=== PATIENT | female | born 1940 | race Caucasian/White ===

== ENCOUNTER 2020-06-18 09:14 | Emergency (ER) | payer MEDICARE, BC ==
[2020-06-18 09:22] VITALS: BP 161/64; PULSE 76
--- NOTE | 2020-06-18 09:36 | EDM.PDOC ---
ED HPI GENERAL MEDICAL PROBLEM - General Chief Complaint: General Stated Complaint: Nose bleed Time Seen by Provider: 06/18/20 09:16 Source of Information: Reports: Patient History Limitations: Reports: No Limitations - History of Present Illness INITIAL COMMENTS - FREE TEXT/NARRATIVE: This patient is an 80 year old male that presents to the ER. Patient reports that started last night at about 1ppm, she had a scab to the inside of her right nare. She reports blowing her nose, and picking at it, she reports the scab came off and her nose began to bleed. She reports she keeps putting tissues at the nose and it keeps bleeding. The patient denies passing out, nausea, vomiting, blood to back of throat. Onset Date: 06/17/20 Onset Time: 23:00 Location: Reports: Other (nose right nare) Severity: Mild Improves with: Reports: None Worsens with: Reports: None Associated Symptoms: Reports: No Other Symptoms. Denies: Confusion, Chest Pain, Cough, cough w sputum, Headaches, Malaise, Nausea/Vomiting, Shortness of Breath, Syncope, Weakness - Related Data Allergies Allergy/AdvReac Type Severity Reaction Status Date / Time ampicillin Allergy Cannot Verified 06/18/20 09:15 Remember Penicillins Allergy Cannot Verified 06/18/20 09:15 Remember Sulfa (Sulfonamide Allergy Cannot Verified 06/18/20 09:15 Antibiotics) Remember Home Meds: Home Meds Aspirin [Halfprin] 81 mg PO DAILY 12/06/14 [History] Hydroxyurea [Hydrea] 500 mg PO ASDIRECTED 12/06/14 [History] L.acidoph,Paracasei, B.lactis [Probiotic] 1 cap PO DAILY 06/18/20 [History] [place]-3/DHA/Epa/Fish Oil [[place] 3 500 Softgel] 1 cap PO DAILY 06/18/20 [History] Past Medical History HEENT History: Reports: Cataract, Other (See Below) Other HEENT History: Eye lid lift Cardiovascular History: Reports: High Cholesterol Hematologic History: Reports: Other (See Below) Other Hematologic History: Mylofibrosis Other Oncologic History: Myleoprolifrative CA - Past Surgical History HEENT Surgical History: Reports: Cataract Surgery Cardiovascular Surgical History: Reports: None Social & Family History - Family History Family Medical History: No Pertinent Family History - Tobacco Use Tobacco Use Status *Q: Never Tobacco User Second Hand Smoke Exposure: No - Caffeine Use Caffeine Use: Reports: None - Recreational Drug Use Recreational Drug Use: No ED ROS GENERAL - Review of Systems Review Of Systems: See Below Constitutional: Reports: No Symptoms HEENT: Reports: Nosebleed Respiratory: Reports: No Symptoms Cardiovascular: Reports: No Symptoms Endocrine: Reports: No Symptoms GI/Abdominal: Reports: No Symptoms : Reports: No Symptoms Musculoskeletal: Reports: No Symptoms Skin: Reports: No Symptoms Neurological: Reports: No Symptoms Psychiatric: Reports: No Symptoms Hematologic/Lymphatic: Reports: No Symptoms Immunologic: Reports: No Symptoms ED EXAM, GENERAL - Physical Exam Exam: See Below Exam Limited By: No Limitations General Appearance: Alert, WD/WN, No Apparent Distress Eye Exam: Bilateral Eye: Normal Inspection, PERRL Ears: Normal External Exam, Normal Canal, Hearing Grossly Normal, Normal TMs Ear Exam: Bilateral Ear: Auricle Normal, Canal Normal, TM normal Nose: Other (right nare anterior medial abrasion with active bleeding. ) Throat/Mouth: Normal Inspection, Normal Lips, Normal Teeth, Normal Gums, Normal Oropharynx, Normal Voice, No Airway Compromise, Other (no blood) Head: Atraumatic, Normocephalic Neck: Normal Inspection, Supple, Non-Tender, Full Range of Motion Respiratory/Chest: No Respiratory Distress, Lungs Clear, Normal Breath Sounds, No Accessory Muscle Use Cardiovascular: Normal Peripheral Pulses, Regular Rate, Rhythm Neurological: Alert, Oriented Psychiatric: Normal Affect, Normal Mood Skin Exam: Warm, Dry, Normal Color, No Rash, Wound/Incision (small abrasion right anterior medial nare) #1 Interpretation EKG Date: 06/18/20 Time: 10:33 Rhythm: NSR Rate (Beats/Min): 68 P-Wave: Present QRS: Normal ST-T: Normal QT: Normal Comparison: NA - No Prior EKG Course - Vital Signs Last Recorded V/S: Last Vital Signs Temp 97.5 F 06/18/20 09:20 Pulse 76 06/18/20 09:20 Resp 18 06/18/20 09:20 BP 161/64 H 06/18/20 09:20 Pulse Ox 96 06/18/20 09:20 - Orders/Labs/Meds Orders: Active Orders 24 hr Category Date Time Status Blood Glucose Check, Bedside [RC] ONETIME Care 06/18/20 10:02 Active EKG Documentation Completion [RC] STAT Care 06/18/20 10:02 Active Chest 2V [CR] Stat Exams 06/18/20 10:03 Taken TROPONIN I [CHEM] Stat Lab 06/18/20 14:00 Ordered Sodium Chloride 0.9% [Normal Saline] 1,000 ml Med 06/18/20 10:00 Active IV ASDIRECTED Medication Orders Sodium Chloride (Normal Saline) 1,000 mls @ 999 mls/hr IV ASDIRECTED YOHANA Stop: 06/22/20 09:51 Last Admin: 06/18/20 10:12 Dose: 999 mls/hr Documented by: MIRIAM Labs: Laboratory Tests 06/18/20 06/18/20 06/18/20 Range/Units 09:16 10:02 10:10 WBC 33.6 H* (5.0-10.0) 10^3/uL RBC 3.05 L (4.00-5.50) 10^6/uL Hgb 10.4 L (12.0-16.0) g/dL Hct 33.9 L (37.0-47.0) % MCV 111.1 H (82.0-94.0) fL MCH 34.1 H (27.0-32.0) pg MCHC 30.7 L (33.0-38.0) g/dL RDW Coeff of Monica 19.0 H (11.0-15.0) % Plt Count 362 (150-400) 10^3/uL Add Manual Diff Yes Neutrophils % (Manual) 63 (35-85) % Band Neutrophils % 3 (0-5) % Lymphocytes % (Manual) 19 L (21-55) % Monocytes % (Manual) 7 (2-12) % Eosinophils % (Manual) 2 (0-5) % Metamyelocytes % 6 % Absolute Neutrophils 22.18 H (1.80-7.00) 10^3/uL Lymphocytes # (Manual) 6.38 H (1.00-4.80) 10^3/uL Monocytes # (Manual) 2.35 H (0.00-0.80) 10^3/uL Eosinophils # (Manual) 0.67 H (0.00-0.45) 10^3/uL Sodium 137 (136-145) mEq/L Potassium 4.5 (3.5-5.0) mEq/L Chloride 102 (98-106) mEq/L Carbon Dioxide 26 (21-32) mmol/L BUN 24 H (7-18) mg/dL Creatinine 1.1 H (0.6-1.0) mg/dL Est Cr Clr Drug Dosing 31.72 mL/min Estimated GFR (MDRD) 48 L (>=60) mL/min Glucose 93 (75-99) mg/dL POC Glucose 87 (75-105) mg/dl Calcium 8.7 (8.4-10.1) mg/dL Total Bilirubin 1.1 H (0.0-1.0) mg/dL AST 43 H (15-37) U/L ALT 29 (12-78) U/L Alkaline Phosphatase 201 H (46-116) U/L Lactate Dehydrogenase 2109 H (100-190) U/L Creatine Kinase 61 (21-215) U/L Troponin I < 0.017 (0.00-0.06) ng/mL Total Protein 7.2 (6.4-8.2) g/dL Albumin 3.6 (3.4-5.0) g/dL Meds: Medications Generic Name Dose Route Start Last Admin Trade Name Freq PRN Reason Stop Dose Admin Sodium Chloride 1,000 mls @ 999 mls/hr 06/18/20 10:00 06/18/20 10:12 Normal Saline IV 06/22/20 09:51 999 mls/hr ASDIRECTED YOHANA Administration Discontinued Medications Generic Name Dose Route Start Last Admin Trade Name Freq PRN Reason Stop Dose Admin Ondansetron HCl 4 mg 06/18/20 09:43 06/18/20 10:12 Zofran Odt PO 06/18/20 09:44 4 mg ONETIME ONE Administration Oxymetazoline HCl 1 ml 06/18/20 09:37 06/18/20 09:40 Nasal Decongestant [place] MANUEL 06/18/20 09:38 1 spray ONETIME ONE Administration - Radiology Interpretation Free Text/Narrative:: CXR: no focal infiltrates, no cardiac enlargement, no pulmonary edema. - Re-Assessments/Exams Free Text/Narrative Re-Assessment/Exam: 06/18/20 09:30 Oxymetazoline sprayed into right nare. Patient asked to sit forward, nasal clamp applied to the nose, cold wash rag with ice applied as well to stop bleeding. 06/18/20 09:35 RN reports the patient is feeling nauseated. Zofran ODT ordered. 06/18/20 09:39 RN reports patient is now acting strange and not answering her questions right away. I went to see patient again, she is pallor, reports she does not feel very well. Reports she feels like she is going to pass out, HR in 40s. Patient is in a sitting position. I laid her back, removed nasal clamp, put on oxygen NC at 2L, put cold wash rag on forehead. Patient was near syncope, but did not have a complete syncopal episode. IV started, NS 1L bolus started. 06/18/20 09:45 Patient now alert and oriented. She is talking and following commands without any difficulty. She reports that she is feeling much better. She reports that she no longer feels nauseated or lightheaded. She is on a imager at this time, cardiac labs ordered. Patient now reports to me that she does have a history of passing out a lot. Patient reports she was not tolerating not being able to breath through her nose. At this time, the clamp will stay off the patient, bleeding is currently controlled. I believe patient had a near syncop al/vasovagal episode due to sitting forward and nasal obstructed due to clamp. Will continue to monitor patient in the ER at this time. 06/18/20 10:08 Patient reports that she feels fine at this time without complaint. 06/18/20 10:21 RN spoke to son via phone, he also reports the patent faints a lot and this is not abnormal for her. Patient is sitting up on bed, drinking orange juice. Her nose has stopped bleeding. The patient reports that she feels fine. She does not have headache, dizziness, lightheaded, n, v, vision changes, chest pain, shortness of breath. She reports she feels fine. Neuro assessment, no unilateral weaknesses, alert and oriented. GCS 15. Stroke Score 0. CBC reviewed, wbc is 33.6, hgb 10.4. Hgb stable. Her wbc elevation is consistent with previous and oncology visits. 06/18/20 11:12 I spoke to the patient about her labs. I spoke to her about a repeat troponin. She refuses. She reports she is fine and wants to go home. The patient is alert and oriented, she is able to make her own medication decisions. She did allow me to sonam to her son about it. I called and spoke to Zain, he agrees and thinks it was her typical passing out. He reports that if she wants to go home, she can go home. He is picking her up now. Patient and Zain explained if she did have cardiac event should could at home, they both understand this and voiced back understanding. Will discharge the patient. Departure - Departure Time of Disposition: 11:11 Disposition: Home, Self-Care 01 Condition: Fair Clinical Impression: Acute anterior epistaxis, Near syncope - Discharge Information *PRESCRIPTION DRUG MONITORING PROGRAM REVIEWED*: Not Applicable *COPY OF PRESCRIPTION DRUG MONITORING REPORT IN PATIENT DARIUSZ: Not Applicable Instructions: Near-Syncope, [id number], Nosebleed, [id number] Referrals: Jose Marshall PA-C [Primary Care Provider] - Forms: ED Department Discharge Additional Instructions: Followup with your primary care provider this week for recheck Return to the ER for worsening of condition or any emergent concerns If nose bleed returns, apply ice to the area, clamp your nose using direct pressure for several minutes While doing this, do not lean forward or slump over. Do not cover you mouth, leave mouth open Do not pick, blow, or stuff tissue up into the nose May gently apply neosporin to the the nose using a q-tip May use over the counter Afrin to slwo or stop bleeding, but only to use for 3 days. DO NOT USE LONGER THAN 3 DAYS! Use a humidifier in the home in the winter to increase humidity Go home and rest Drink plenty of fluids IF YOU WOULD LIKE TO RETURN AFTER 2PM FOR REPEAT LAB OF HEART: TROPONIN: PLEASE DO SO And most importantly, You and your Family have a Merkrys Eulogio! Sepsis Event Note (ED) - Evaluation Sepsis Screening Result: No Definite Risk - Focused Exam Vital Signs: Vital Signs Temp Pulse Resp BP Pulse Ox 06/18/20 09:20 97.5 F 76 18 161/64 H 96 - My Orders Last 24 Hours: My Active Orders 06/18/20 10:00 Sodium Chloride 0.9% [Normal Saline] 1,000 ml IV ASDIRECTED 06/18/20 10:02 Blood Glucose Check, Bedside [RC] ONETIME EKG Documentation Completion [RC] STAT 06/18/20 10:03 Chest 2V [CR] Stat 06/18/20 14:00 TROPONIN I [CHEM] Stat - Assessment/Plan Last 24 Hours: My Active Orders 06/18/20 10:00 Sodium Chloride 0.9% [Normal Saline] 1,000 ml IV ASDIRECTED 06/18/20 10:02 Blood Glucose Check, Bedside [RC] ONETIME EKG Documentation Completion [RC] STAT 06/18/20 10:03 Chest 2V [CR] Stat 06/18/20 14:00 TROPONIN I [CHEM] Stat Plan: PLEASE SEE RN NOTE FOR PFSH
[2020-06-18] MEDS ORDERED: Oxymetazoline 0.05% Nasal Spray 30 ML Bottle NAS ONE (09:37)
[2020-06-18] MEDS ORDERED: Ondansetron 4 MG Tab.DIS PO ONE (09:43)
[2020-06-18] MEDS ORDERED: Sodium Chloride 0.9% 1,000 ML IV SCH (10:00)
[2020-06-18 10:47] LABS: CHLORIDE,CL 102 mEq/L (98-106); SODIUM,NA 137 mEq/L (136-145)
== END 2020-06-18 11:22 | disposition home or self-care (01) ==
LOC: CC.ED 09:14
DX: R04.0 Epistaxis (principal); R55 Syncope and collapse; Z88.0 Allergy status to penicillin; Z88.2 Allergy status to sulfonamides
CPT/HCPCS: 36415; 71046; 80053; 82550; 82962; 83615; 84484; 85025; 93005; 93010; 99284; 99284-25; A9270-GY; J7030

== ENCOUNTER 2023-01-14 19:54 | Emergency (ER) | payer MEDICARE, BC ==
[2023-01-14 20:35] LABS: BASOPHILS ABSOLUTE AUTO 1.59 10^3/uL (0.00-0.50); BASOPHILS PERCENT AUTO 5.8 % (0-1); EOSINOPHILS ABSOLUTE AUTO 0.13 10^3/uL (0.00-1.50); EOSINOPHILS PERCENT AUTO 0.5 % (0-6); HEMOGLOBIN 10.4 g/dL (12.0-16.0); IMMATURE GRAN ABSOLUTE AUTO 3.03 10^3/uL (0.00-0.49); IMMATURE GRAN PERCENT AUTO 11.1 % (0.0-4.9); LYMPHOCYTES ABSOLUTE AUTO 1.41 10^3/uL (0.60-5.00); LYMPHOCYTES PERCENT AUTO 5.2 % (24-44); MEAN CORPUSCULAR HEMOGLOBIN 31.6 pg (27.0-32.0); MEAN CORPUSCULAR HGB CONC 32.5 g/dL (32.0-36.0); MEAN CORPUSCULAR VOLUME 97.3 fL (83.0-97.0); MONOCYTES ABSOLUTE AUTO 7.19 10^3/uL (0.00-1.50); MONOCYTES PERCENT AUTO 26.4 % (0-10); NEUTROPHILS ABSOLUTE AUTO 13.92 x10^3/uL (1.80-8.00); PLATELET COUNT,PLT 114 10^3/uL (150-400); RED BLOOD CELL COUNT 3.29 x10^6/uL (4.00-5.50)
[2023-01-14 20:39] LABS: APPEARANCE,URINE CLEAR (CLEAR); BILIRUBIN,URINE NEGATIVE (NEGATIVE); COLOR,URINE YELLOW (YELLOW); GLUCOSE,URINE NEGATIVE (NEGATIVE); KETONES,URINE NEGATIVE (NEGATIVE); LEUKOCYTE ESTERASE,URINE MODERATE (NEGATIVE); NITRITE,URINE POSITIVE (NEGATIVE); OCCULT BLOOD,URINE MODERATE (NEGATIVE); PH,URINE 6.5 (4.5-8.0); PROTEIN,URINE 100 mg/dL (NEGATIVE); UROBILINOGEN,URINE 0.2 EU/dL (0.2-1.0)
[2023-01-14 20:42] VITALS: BP 149/66; PULSE 88
[2023-01-14 20:44] LABS: WBC,URINE >100 /HPF (0-5)
[2023-01-14 20:45] LABS: BACTERIA,URINE MODERATE /HPF (NOT SEEN); EPITHELIAL CELLS,URINE FEW /HPF (NOT SEEN); MUCUS,URINE OCCASIONAL /HPF (NOT SEEN)
[2023-01-14 20:51] LABS: ALBUMIN 3.8 g/dL (3.4-5.0); BILIRUBIN TOTAL 1.4 mg/dL (0.0-1.0); CALCIUM 8.9 mg/dL (8.4-10.1); CREATININE 1.1 mg/dL (0.6-1.0); EST CRCL DRUG DOSING (CG) 32.06 mL/min; MAGNESIUM 1.7 mg/dL (1.8-2.4); POTASSIUM,K 4.1 mEq/L (3.5-5.0); PROTEIN TOTAL,TP 7.7 g/dL (6.4-8.2)
[2023-01-14 20:53] LABS: WHITE BLOOD CELL COUNT,WBC 27.3 10^3/uL (4.0-11.0)
[2023-01-14] MEDS: Famotidine 20 MG/2 ML SDV IVPUSH ONE (21:13)
[2023-01-14] MEDS: Ondansetron 4 MG/2 ML SDV IVPUSH ONE (21:17)
[2023-01-14] MEDS: Sodium Chloride 0.9% 500 ML IV SCH (21:19)
[2023-01-14] MEDS: Levofloxacin 500 MG Tab PO ONE (21:47)
== END 2023-01-14 22:03 | disposition home or self-care (01) ==
LOC: CC.ED 19:54
DX: N39.0 Urinary tract infection, site not specified (principal); E83.42 Hypomagnesemia; E80.0 Hereditary erythropoietic porphyria; Z79.899 Other long term (current) drug therapy; Z20.822 Contact with and (suspected) exposure to COVID-19; Z88.0 Allergy status to penicillin; Z88.2 Allergy status to sulfonamides
CPT/HCPCS: 36415; 80053; 81001; 83735; 84484; 85025; 87086; 87088; 87186; 96361; 96374; 96375; 99283-25; 99284; A9270-GY; J2405; J3490; J7040; U0002

== ENCOUNTER 2023-08-05 16:45 | Observation (INO) | payer MEDICARE, BC ==
[2023-08-05 17:15] LABS: APPEARANCE,URINE CLEAR (CLEAR); BILIRUBIN,URINE NEGATIVE (NEGATIVE); COLOR,URINE YELLOW (YELLOW); GLUCOSE,URINE NEGATIVE (NEGATIVE); KETONES,URINE NEGATIVE (NEGATIVE); LEUKOCYTE ESTERASE,URINE NEGATIVE (NEGATIVE); NITRITE,URINE NEGATIVE (NEGATIVE); OCCULT BLOOD,URINE LARGE (NEGATIVE); PH,URINE 6.5 (4.5-8.0); PROTEIN,URINE 100 mg/dL (NEGATIVE); UROBILINOGEN,URINE 0.2 EU/dL (0.2-1.0)
[2023-08-05] MEDS ORDERED: Ondansetron 4 MG Tab.DIS PO PRN (17:16)
[2023-08-05 17:21] LABS: BACTERIA,URINE FEW /HPF (NOT SEEN); RBC,URINE 20-30 /HPF (0-5); SQUAMOUS EPITHELIAL CELLS,UR FEW /HPF (NOT SEEN); WBC,URINE 0-5 /HPF (0-5)
[2023-08-05 17:23] LABS: BASOPHILS ABSOLUTE AUTO 3.88 10^3/uL (0.00-0.50); BASOPHILS PERCENT AUTO 7.3 % (0-1); EOSINOPHILS ABSOLUTE AUTO 0.27 10^3/uL (0.00-1.50); EOSINOPHILS PERCENT AUTO 0.5 % (0-6); HEMATOCRIT 30.4 % (37.0-47.0); HEMOGLOBIN 9.6 g/dL (12.0-16.0); IMMATURE GRAN ABSOLUTE AUTO 8.73 10^3/uL (0.00-0.49); IMMATURE GRAN PERCENT AUTO 16.5 % (0.0-4.9); LYMPHOCYTES ABSOLUTE AUTO 15.17 10^3/uL (0.60-5.00); LYMPHOCYTES PERCENT AUTO 28.6 % (24-44); MEAN CORPUSCULAR HEMOGLOBIN 32.7 pg (27.0-32.0); MEAN CORPUSCULAR HGB CONC 31.6 g/dL (32.0-36.0); MEAN CORPUSCULAR VOLUME 103.4 fL (83.0-97.0); MONOCYTES ABSOLUTE AUTO 2.82 10^3/uL (0.00-1.50); MONOCYTES PERCENT AUTO 5.3 % (0-10); NEUTROPHILS ABSOLUTE AUTO 22.14 x10^3/uL (1.80-8.00); NEUTROPHILS PERCENT AUTO 41.8 % (41-71); PLATELET COUNT,PLT 139 10^3/uL (150-400); RED BLOOD CELL COUNT 2.94 x10^6/uL (4.00-5.50)
[2023-08-05 17:26] LABS: ALANINE AMINOTRANSFERASE,ALT 16 U/L (12-78); ALBUMIN 4.4 g/dL (3.4-5.0); ALKALINE PHOSPHATASE 57 U/L (46-116); ASPARTATE AMNIOTRANSFERASE,AST 29 U/L (15-37); BILIRUBIN TOTAL 1.4 mg/dL (0.0-1.0); BLOOD UREA NITROGEN,BUN 28 mg/dL (7-18); CARBON DIOXIDE,CO2 27 mmol/L (21-32); CHLORIDE,CL 92 mEq/L (98-106); CREATININE 1.3 mg/dL (0.6-1.0); EST CRCL DRUG DOSING (CG) 26.65 mL/min; GLUCOSE RANDOM 101 mg/dL (75-99); POTASSIUM,K 4.7 mEq/L (3.5-5.0); PROTEIN TOTAL,TP 8.4 g/dL (6.4-8.2)
[2023-08-05 17:27] LABS: SODIUM,NA 124 mEq/L (136-145)
[2023-08-05 17:28] LABS: C-REACTIVE PROTEIN < 0.50 mg/dL (<=0.50); ESTIMATED GFR 41 mL/min (>=60)
[2023-08-05] MEDS ORDERED: Acetaminophen 325 MG Tab PO PRN (18:00)
[2023-08-05] MEDS ORDERED: Ondansetron 4 MG/2 ML SDV IV PRN (18:00)
[2023-08-05] MEDS ORDERED: Docusate Sodium 100 MG Cap PO PRN (18:00)
[2023-08-05] MEDS ORDERED: predniSONE 1 MG Tab PO SCH (18:00)
[2023-08-05] MEDS ORDERED: Sodium Chloride 0.9% 10 ML Syringe FLUSH PRN (18:00)
[2023-08-05] MEDS ORDERED: Polyethylene Glycol 3350 Powder 17 GM Packet PO PRN (18:00)
[2023-08-05] MEDS: Sodium Chloride 0.9% 1,000 ML IV SCH (19:31)
[2023-08-05] MEDS: Sodium Chloride 1 GM Tab PO SCH (19:31)
[2023-08-06] MEDS: Ondansetron 4 MG Tab.DIS PO PRN (07:27)
[2023-08-06] MEDS: Lactobacillus Rhamnosus GG (Probiotic) Cap PO SCH (07:28)
[2023-08-06] MEDS: Cefuroxime 250 MG Tab PO SCH (07:28)
[2023-08-06] MEDS: valACYclovir 500 MG Tab PO SCH (07:28)
[2023-08-06] MEDS: Allopurinol 100 MG Tab PO SCH (07:28)
[2023-08-06] MEDS: Losartan 25 MG Tab PO SCH (07:29)
[2023-08-06 07:34] VITALS: BP 151/50
[2023-08-06 07:42] LABS: BASOPHILS ABSOLUTE AUTO 2.51 10^3/uL (0.00-0.50); BASOPHILS PERCENT AUTO 5.9 % (0-1); EOSINOPHILS ABSOLUTE AUTO 0.37 10^3/uL (0.00-1.50); EOSINOPHILS PERCENT AUTO 0.9 % (0-6); HEMATOCRIT 26.6 % (37.0-47.0); HEMOGLOBIN 8.4 g/dL (12.0-16.0); IMMATURE GRAN ABSOLUTE AUTO 7.29 10^3/uL (0.00-0.49); IMMATURE GRAN PERCENT AUTO 17.1 % (0.0-4.9); LYMPHOCYTES ABSOLUTE AUTO 3.73 10^3/uL (0.60-5.00); LYMPHOCYTES PERCENT AUTO 8.8 % (24-44); MEAN CORPUSCULAR HEMOGLOBIN 32.7 pg (27.0-32.0); MEAN CORPUSCULAR HGB CONC 31.6 g/dL (32.0-36.0); MEAN CORPUSCULAR VOLUME 103.5 fL (83.0-97.0); MONOCYTES ABSOLUTE AUTO 10.71 10^3/uL (0.00-1.50); MONOCYTES PERCENT AUTO 25.1 % (0-10); NEUTROPHILS ABSOLUTE AUTO 17.99 x10^3/uL (1.80-8.00); NEUTROPHILS PERCENT AUTO 42.2 % (41-71); PLATELET COUNT,PLT 134 10^3/uL (150-400); RED BLOOD CELL COUNT 2.57 x10^6/uL (4.00-5.50)
[2023-08-06 07:52] LABS: WHITE BLOOD CELL COUNT,WBC 42.6 10^3/uL (4.0-11.0)
[2023-08-06] MEDS ORDERED: OMEGA PO SCH (08:00)
[2023-08-06] MEDS ORDERED: DHA PO SCH (08:00)
[2023-08-06] MEDS ORDERED: EPA PO SCH (08:00)
[2023-08-06] MEDS ORDERED: [UNRECOGNIZED DRUG - OTHER] PO SCH (08:00)
[2023-08-06] MEDS ORDERED: FISH OIL PO SCH (08:00)
[2023-08-06 08:31] LABS: CALCIUM 8.3 mg/dL (8.4-10.1); CREATININE 1.2 mg/dL (0.6-1.0); EST CRCL DRUG DOSING (CG) 28.87 mL/min
[2023-08-06 08:43] VITALS: PULSE 67
[2023-08-06 09:12] LABS: A/G RATIO 1.2 (0.9-1.8); ALANINE AMINOTRANSFERASE,ALT 20 U/L (12-78); ALBUMIN 4.8 g/dL (3.4-5.0); ALKALINE PHOSPHATASE 56 U/L (46-116); ASPARTATE AMNIOTRANSFERASE,AST 36 U/L (15-37); BILIRUBIN DIRECT 0.2 mg/dL (0.0-0.3); BILIRUBIN INDIRECT 1.1 mg/dL; BILIRUBIN TOTAL 1.3 mg/dL (0.0-1.0); PROTEIN TOTAL,TP 8.8 g/dL (6.4-8.2); URIC ACID 5.6 mg/dL (2.6-6.0)
[2023-08-06 09:15] LABS: C-REACTIVE PROTEIN < 0.50 mg/dL (<=0.50); LACTATE DEHYDROGENASE,LDH 1539 U/L (100-190)
[2023-08-06] MEDS: predniSONE 5 MG Tab PO SCH (11:05)
[2023-08-06] MEDS: RUXOLITINIB PHOSPHATE 20 MG PO SCH (11:05)
[2023-08-06 11:09] LABS: POTASSIUM,K 4.5 mEq/L (3.5-5.0)
[2023-08-06] MEDS ORDERED: Hydroxyurea 500 MG Cap PO SCH (16:00)
[2023-08-06 22:41] LABS: % TRANSFERRIN SAT 51.1 % (20.0-50.0)
== END 2023-08-06 12:10 | disposition home or self-care (01) ==
LOC: CC.ED 16:45 → CC.MS 17:40 → UNDOADMOB 17:40 → CC.MS 17:44
PROVIDERS: ADMIT Nurse Practitioner Family; ATTEND Nurse Practitioner Family
DX: J01.00 Acute maxillary sinusitis, unspecified (principal); E87.1 Hypo-osmolality and hyponatremia; E78.00 Pure hypercholesterolemia, unspecified; Z79.899 Other long term (current) drug therapy; Z88.2 Allergy status to sulfonamides; Z88.0 Allergy status to penicillin
CPT/HCPCS: 36415; 80048; 80053; 80076; 81001; 82306; 82607; 82728; 83540; 83550; 83615; 84550; 85025; 86140; 99284; A9270-GY; G0378; J7030; J7512

== ENCOUNTER 2024-05-08 12:32 | Observation (INO) | payer MEDICARE, BC ==
[2024-05-08] MEDS: Sodium Chloride 0.9% 1,000 ML IV ONE (13:00)
[2024-05-08] MEDS: Ondansetron 4 MG/2 ML SDV IV ONE (13:00)
[2024-05-08 14:19] LABS: BASOPHILS ABSOLUTE AUTO 19.36 10^3/uL (0.00-0.50); BASOPHILS PERCENT AUTO 17.6 % (0-1); EOSINOPHILS ABSOLUTE AUTO 5.54 10^3/uL (0.00-1.50); HEMATOCRIT 25.5 % (37.0-47.0); HEMOGLOBIN 7.9 g/dL (12.0-16.0); IMMATURE GRAN ABSOLUTE AUTO 18.01 10^3/uL (0.00-0.49); IMMATURE GRAN PERCENT AUTO 16.4 % (0.0-4.9); LYMPHOCYTES ABSOLUTE AUTO 8.72 10^3/uL (0.60-5.00); LYMPHOCYTES PERCENT AUTO 7.9 % (24-44); MONOCYTES ABSOLUTE AUTO 29.02 10^3/uL (0.00-1.50); MONOCYTES PERCENT AUTO 26.4 % (0-10); NEUTROPHILS ABSOLUTE AUTO 29.32 x10^3/uL (1.80-8.00); NEUTROPHILS PERCENT AUTO 26.7 % (41-71); PLATELET COUNT,PLT 109 10^3/uL (150-400); RED BLOOD CELL COUNT 2.63 x10^6/uL (4.00-5.50)
[2024-05-08 14:27] LABS: BLOOD UREA NITROGEN,BUN 27 mg/dL (7-18); CALCIUM 8.9 mg/dL (8.4-10.1); CARBON DIOXIDE,CO2 22 mmol/L (21-32); CHLORIDE,CL 103 mEq/L (98-106); CREATININE 1.5 mg/dL (0.6-1.0); GLUCOSE RANDOM 104 mg/dL (75-99); POTASSIUM,K 4.7 mEq/L (3.5-5.0); SODIUM,NA 136 mEq/L (136-145)
[2024-05-08 14:30] LABS: ESTIMATED GFR 34 mL/min (>=60)
[2024-05-08] MEDS ORDERED: Docusate Sodium 100 MG Cap PO PRN (17:31)
[2024-05-08] MEDS ORDERED: Polyethylene Glycol 3350 Powder 17 GM Packet PO PRN (17:31)
[2024-05-08] MEDS ORDERED: Ondansetron 4 MG Tab.DIS PO PRN (17:31)
[2024-05-08] MEDS: Ondansetron 4 MG/2 ML SDV IV PRN (18:32)
[2024-05-08] MEDS: Lactated Ringers 1,000 ML IV SCH (18:57)
[2024-05-08] MEDS: JAKAFI PO SCH (20:13)
[2024-05-08 21:45] LABS: APPEARANCE,URINE SLIGHTLY CLOUDY (CLEAR); BILIRUBIN,URINE NEGATIVE (NEGATIVE); COLOR,URINE YELLOW (YELLOW); GLUCOSE,URINE NEGATIVE (NEGATIVE); KETONES,URINE NEGATIVE (NEGATIVE); LEUKOCYTE ESTERASE,URINE TRACE (NEGATIVE); NITRITE,URINE NEGATIVE (NEGATIVE); OCCULT BLOOD,URINE LARGE (NEGATIVE); PH,URINE 5.5 (4.5-8.0); PROTEIN,URINE 100 mg/dL (NEGATIVE); UROBILINOGEN,URINE 0.2 EU/dL (0.2-1.0)
[2024-05-08 21:52] LABS: AMORPHOUS SEDIMENT,URINE MODERATE /HPF (NOT SEEN); WBC,URINE 0-5 /HPF (0-5)
[2024-05-08 21:53] LABS: BACTERIA,URINE FEW /HPF (NOT SEEN); GRANULAR CASTS,URINE OCCASIONAL /LPF (NOT SEEN)
[2024-05-09 07:35] LABS: BASOPHILS ABSOLUTE AUTO 11.16 10^3/uL (0.00-0.50); BASOPHILS PERCENT AUTO 15.3 % (0-1); EOSINOPHILS ABSOLUTE AUTO 0.61 10^3/uL (0.00-1.50); EOSINOPHILS PERCENT AUTO 0.8 % (0-6); HEMATOCRIT 20.4 % (37.0-47.0); IMMATURE GRAN ABSOLUTE AUTO 0.13 10^3/uL (0.00-0.49); IMMATURE GRAN PERCENT AUTO 0.2 % (0.0-4.9); LYMPHOCYTES ABSOLUTE AUTO 22.54 10^3/uL (0.60-5.00); LYMPHOCYTES PERCENT AUTO 30.8 % (24-44); MEAN CORPUSCULAR HEMOGLOBIN 29.5 pg (27.0-32.0); MEAN CORPUSCULAR HGB CONC 30.4 g/dL (32.0-36.0); MEAN CORPUSCULAR VOLUME 97.1 fL (83.0-97.0); MONOCYTES ABSOLUTE AUTO 4.14 10^3/uL (0.00-1.50); MONOCYTES PERCENT AUTO 5.7 % (0-10); NEUTROPHILS ABSOLUTE AUTO 34.55 x10^3/uL (1.80-8.00); NEUTROPHILS PERCENT AUTO 47.2 % (41-71); PLATELET COUNT,PLT 65 10^3/uL (150-400)
[2024-05-09 07:44] LABS: ALBUMIN 3.3 g/dL (3.4-5.0); BILIRUBIN TOTAL 1.4 mg/dL (0.0-1.0); CALCIUM 8.3 mg/dL (8.4-10.1); CREATININE 1.6 mg/dL (0.6-1.0); EST CRCL DRUG DOSING (CG) 19.4 mL/min; MAGNESIUM 1.6 mg/dL (1.8-2.4); POTASSIUM,K 4.7 mEq/L (3.5-5.0); PROTEIN TOTAL,TP 6.7 g/dL (6.4-8.2)
[2024-05-09] MEDS: valACYclovir 500 MG Tab PO SCH (07:44)
[2024-05-09] MEDS: Losartan 25 MG Tab PO SCH (07:44)
[2024-05-09] MEDS: Allopurinol 100 MG Tab PO SCH (07:44)
[2024-05-09 08:08] LABS: WHITE BLOOD CELL COUNT,WBC 73.1 10^3/uL (4.0-11.0)
[2024-05-09 08:09] LABS: HEMOGLOBIN 6.2 g/dL (12.0-16.0)
[2024-05-09] MEDS: predniSONE 5 MG Tab PO SCH (08:33)
[2024-05-09] MEDS: Sodium Chloride 0.9% 250 ML IV SCH (11:30)
[2024-05-09 13:36] VITALS: BP 137/65; PULSE 84
== END 2024-05-09 15:40 | disposition home or self-care (01) ==
LOC: CC.ACU 12:32 → CC.MS 17:26
PROVIDERS: ADMIT Nurse Practitioner; ATTEND Nurse Practitioner
DX: E86.0 Dehydration (principal); R11.2 Nausea with vomiting, unspecified; N17.9 Acute kidney failure, unspecified; I12.9 Hypertensive chronic kidney disease with stage 1 through stage 4 chronic kidney disease, or unspecified chronic kidney disease; N18.9 Chronic kidney disease, unspecified; Z88.0 Allergy status to penicillin; Z88.1 Allergy status to other antibiotic agents; Z88.2 Allergy status to sulfonamides; Z79.899 Other long term (current) drug therapy
CPT/HCPCS: 36415; 36430; 80048; 80053; 81001; 83735; 85025; 86850; 86900; 86901; 86920; 86922; 96372; 96374; 99223; 99238; A9270-GY; G0378; J0881; J2405; J7030; J7050; J7120; J7512; P9016

== ENCOUNTER 2024-11-22 18:25 | Observation (INO) | payer MEDICARE, BC ==
[2024-11-22 19:17] LABS: BASOPHILS ABSOLUTE AUTO 23.11 10^3/uL (0.00-0.50); BASOPHILS PERCENT AUTO 8.8 % (0-1); EOSINOPHILS ABSOLUTE AUTO 2.25 10^3/uL (0.00-1.50); EOSINOPHILS PERCENT AUTO 0.9 % (0-6); HEMOGLOBIN 9.9 g/dL (12.0-16.0); IMMATURE GRAN ABSOLUTE AUTO 56.99 10^3/uL (0.00-0.49); IMMATURE GRAN PERCENT AUTO 21.8 % (0.0-4.9); LYMPHOCYTES ABSOLUTE AUTO 25.45 10^3/uL (0.60-5.00); LYMPHOCYTES PERCENT AUTO 9.7 % (24-44); MEAN CORPUSCULAR HEMOGLOBIN 28.6 pg (27.0-32.0); MEAN CORPUSCULAR VOLUME 95.4 fL (83.0-97.0); MONOCYTES ABSOLUTE AUTO 72.35 10^3/uL (0.00-1.50); MONOCYTES PERCENT AUTO 27.7 % (0-10); NEUTROPHILS ABSOLUTE AUTO 81.23 x10^3/uL (1.80-8.00); NEUTROPHILS PERCENT AUTO 31.1 % (41-71); PLATELET COUNT,PLT 91 10^3/uL (150-400); RED BLOOD CELL COUNT 3.46 x10^6/uL (4.00-5.50)
[2024-11-22 19:22] LABS: WHITE BLOOD CELL COUNT,WBC 261.4 10^3/uL (4.0-11.0)
[2024-11-22 19:52] LABS: ALBUMIN 4.3 g/dL (3.4-5.0); BILIRUBIN TOTAL 1.6 mg/dL (0.0-1.0); CREATININE 1.8 mg/dL (0.6-1.0); EST CRCL DRUG DOSING (CG) 18.07 mL/min; POTASSIUM,K 5.9 mEq/L (3.5-5.0); PROTEIN TOTAL,TP 8.5 g/dL (6.4-8.2); URIC ACID 8.1 mg/dL (2.6-6.0)
[2024-11-22 20:03] LABS: CALCIUM 7.8 mg/dL (8.4-10.1)
[2024-11-22] MEDS: methylPREDNISolone Sodium Succinate 125 MG/2 ML SDV IVPUSH STA (20:54)
[2024-11-22] MEDS: methylPREDNISolone Sodium Succinate 40 MG/1 ML SDV IM ONE (20:59)
[2024-11-22] MEDS ORDERED: Sodium Chloride 0.9% 10 ML Syringe FLUSH PRN (23:10)
[2024-11-22] MEDS ORDERED: Ondansetron 4 MG/2 ML SDV IV PRN (23:10)
[2024-11-22] MEDS ORDERED: Ondansetron 4 MG Tab.DIS PO PRN (23:10)
[2024-11-22] MEDS ORDERED: Acetaminophen 325 MG Tab PO PRN (23:10)
[2024-11-23] MEDS: Sodium Chloride 0.9% 1,000 ML IV SCH (00:18)
[2024-11-23] MEDS: JAKAFI 15 MG PO SCH (07:42)
[2024-11-23] MEDS: Losartan 25 MG Tab PO SCH (07:42)
[2024-11-23] MEDS: valACYclovir 500 MG Tab PO SCH (07:42)
[2024-11-23] MEDS: amLODIPine 2.5 MG Tab PO SCH (07:43)
[2024-11-23 08:03] LABS: ALBUMIN 3.8 g/dL (3.4-5.0); BILIRUBIN TOTAL 1.1 mg/dL (0.0-1.0); CALCIUM 7.3 mg/dL (8.4-10.1); CREATININE 1.9 mg/dL (0.6-1.0); EST CRCL DRUG DOSING (CG) 17.12 mL/min; PROTEIN TOTAL,TP 7.6 g/dL (6.4-8.2)
[2024-11-23 08:26] LABS: BASOPHILS ABSOLUTE AUTO 22.37 10^3/uL (0.00-0.50); BASOPHILS PERCENT AUTO 9.3 % (0-1); EOSINOPHILS ABSOLUTE AUTO 1.34 10^3/uL (0.00-1.50); EOSINOPHILS PERCENT AUTO 0.6 % (0-6); HEMATOCRIT 30.6 % (37.0-47.0); HEMOGLOBIN 8.9 g/dL (12.0-16.0); IMMATURE GRAN ABSOLUTE AUTO 52.98 10^3/uL (0.00-0.49); LYMPHOCYTES ABSOLUTE AUTO 18.68 10^3/uL (0.60-5.00); LYMPHOCYTES PERCENT AUTO 7.8 % (24-44); MEAN CORPUSCULAR HEMOGLOBIN 27.6 pg (27.0-32.0); MEAN CORPUSCULAR HGB CONC 29.1 g/dL (32.0-36.0); MONOCYTES PERCENT AUTO 28.1 % (0-10); NEUTROPHILS ABSOLUTE AUTO 77.79 x10^3/uL (1.80-8.00); NEUTROPHILS PERCENT AUTO 32.2 % (41-71); PLATELET COUNT,PLT 80 10^3/uL (150-400); RED BLOOD CELL COUNT 3.22 x10^6/uL (4.00-5.50)
[2024-11-23 08:28] LABS: WHITE BLOOD CELL COUNT,WBC 240.9 10^3/uL (4.0-11.0)
[2024-11-23] MEDS: methylPREDNISolone Sodium Succinate 125 MG/2 ML SDV IVPUSH STA (09:56)
[2024-11-23 10:19] VITALS: BP 138/64; PULSE 72
== END 2024-11-23 12:26 | disposition home or self-care (01) ==
LOC: CC.ED 18:25 → CC.MS 21:30 → UNDOADMOB 21:30 → CC.MS 22:01 → UNDODISOB 11-23 12:26
PROVIDERS: ADMIT Physician Assistant Medical; ATTEND Physician Assistant Medical
DX: M10.9 Gout, unspecified (principal); E86.0 Dehydration; E87.5 Hyperkalemia; I10 Essential (primary) hypertension; E78.00 Pure hypercholesterolemia, unspecified; Z79.899 Other long term (current) drug therapy; Z88.0 Allergy status to penicillin; Z88.2 Allergy status to sulfonamides
CPT/HCPCS: 36415; 73630-LT; 80053; 84550; 85025; 85379; 96372; 96374; 99223; 99239; 99284; A9270-GY; G0378; J2919; J7030

== ENCOUNTER 2025-02-27 13:15 | Emergency (ER) | payer MEDICARE, BC ==
[2025-02-27 13:46] VITALS: BP 175/80
[2025-02-27 14:08] LABS: BASOPHILS ABSOLUTE AUTO 19.67 10^3/uL (0.00-0.50); BASOPHILS PERCENT AUTO 12.2 % (0-1); EOSINOPHILS ABSOLUTE AUTO 1.72 10^3/uL (0.00-1.50); EOSINOPHILS PERCENT AUTO 1.1 % (0-6); IMMATURE GRAN ABSOLUTE AUTO 0.39 10^3/uL (0.00-0.49); IMMATURE GRAN PERCENT AUTO 0.2 % (0.0-4.9); LYMPHOCYTES ABSOLUTE AUTO 13.55 10^3/uL (0.60-5.00); LYMPHOCYTES PERCENT AUTO 8.4 % (24-44); MONOCYTES ABSOLUTE AUTO 41.29 10^3/uL (0.00-1.50); MONOCYTES PERCENT AUTO 25.6 % (0-10); NEUTROPHILS ABSOLUTE AUTO 84.82 x10^3/uL (1.80-8.00); NEUTROPHILS PERCENT AUTO 52.5 % (41-71); PLATELET COUNT,PLT 53 10^3/uL (150-400); RED BLOOD CELL COUNT 3.45 x10^6/uL (4.00-5.50)
[2025-02-27 14:18] LABS: WHITE BLOOD CELL COUNT,WBC 161.4 10^3/uL (4.0-11.0)
[2025-02-27 14:21] LABS: ALANINE AMINOTRANSFERASE,ALT 15 U/L (12-78); ASPARTATE AMNIOTRANSFERASE,AST 43 U/L (15-37); BILIRUBIN TOTAL 1.3 mg/dL (0.0-1.0); BLOOD UREA NITROGEN,BUN 19 mg/dL (7-18); CARBON DIOXIDE,CO2 21 mmol/L (21-32); CHLORIDE,CL 105 mEq/L (98-106); CREATININE 2.2 mg/dL (0.6-1.0); GLUCOSE RANDOM 129 mg/dL (75-99); POTASSIUM,K 4.1 mEq/L (3.5-5.0); PROTEIN TOTAL,TP 7.3 g/dL (6.4-8.2); SODIUM,NA 139 mEq/L (136-145)
[2025-02-27 14:22] LABS: ESTIMATED GFR 21 mL/min (>=60)
[2025-02-27 15:15] VITALS: PULSE 80
== END 2025-02-27 16:15 | disposition home or self-care (01) ==
LOC: CC.ED 13:15
DX: D46.9 Myelodysplastic syndrome, unspecified (principal); R09.02 Hypoxemia; E78.00 Pure hypercholesterolemia, unspecified; I10 Essential (primary) hypertension; Z88.0 Allergy status to penicillin; Z88.2 Allergy status to sulfonamides; Z79.899 Other long term (current) drug therapy
CPT/HCPCS: 36415; 71045; 80053; 85025; 86140; 99285

== ENCOUNTER 2025-03-04 11:58 | Inpatient (IN) | payer MEDICARE, BC ==
[2025-03-04] MEDS ORDERED: Acetaminophen/HYDROcodone 325-5 MG Tab PO PRN (12:06)
[2025-03-04] MEDS ORDERED: Ondansetron 4 MG Tab.DIS PO PRN (12:06)
[2025-03-04] MEDS: methylPREDNISolone Sodium Succinate 40 MG/1 ML SDV IVPUSH SCH (13:39)
[2025-03-06 21:06] VITALS: BP 144/77; PULSE 82
[2025-03-07] MEDS: Ondansetron 4 MG/2 ML SDV IV PRN (03:28)
== END 2025-03-07 11:12 | disposition swing bed (61) | DRG 951 ==
LOC: CC.MS 11:58 → UNDOADMIN 11:58 → CC.MS 12:06
PROVIDERS: ADMIT Nurse Practitioner; ATTEND Nurse Practitioner
DX: Z51.5 Encounter for palliative care (principal); D75.81 Myelofibrosis; E78.00 Pure hypercholesterolemia, unspecified; I10 Essential (primary) hypertension; D46.9 Myelodysplastic syndrome, unspecified; F41.9 Anxiety disorder, unspecified; Z88.0 Allergy status to penicillin; Z88.2 Allergy status to sulfonamides; Z91.018 Allergy to other foods; Z79.899 Other long term (current) drug therapy; Z98.49 Cataract extraction status, unspecified eye
CPT/HCPCS: 99223; 99232; 99233; 99238; J2270; J2405; J2919

== ENCOUNTER 2025-03-07 11:40 | Inpatient (IN) | payer MEDICARE, BC ==
[2025-03-07] MEDS ORDERED: Acetaminophen/HYDROcodone 325-5 MG Tab PO PRN (12:50)
[2025-03-07] MEDS ORDERED: Ondansetron 4 MG Tab.DIS PO PRN (12:50)
[2025-03-07] MEDS: methylPREDNISolone Sodium Succinate 40 MG/1 ML SDV IVPUSH SCH (19:29)
[2025-03-09] MEDS: Ondansetron 4 MG/2 ML SDV IV PRN (17:52)
[2025-03-10] MEDS: LORazepam Conc Solution 2 MG/ML 30 ML Bottle SL PRN (10:19)
== END 2025-03-10 15:35 | disposition expired | DRG 951 ==
LOC: CC.MS 11:40 → UNDOADMIN 11:40 → CC.MS 12:50
PROVIDERS: ADMIT Nurse Practitioner; ATTEND Nurse Practitioner
DX: Z51.5 Encounter for palliative care (principal); D75.81 Myelofibrosis; D46.9 Myelodysplastic syndrome, unspecified; Z66 Do not resuscitate; Z79.899 Other long term (current) drug therapy
CPT/HCPCS: 51702; 99315; A9270-GY; J2270; J2405; J2919